=== PATIENT | female | born 1970 | race Caucasian/White ===

== ENCOUNTER 2019-09-15 18:51 | Inpatient (IN) | payer BC ==
[~2019-09-15] VITALS: Ht 167.6 cm; Wt 130.0 kg
[~2019-09-15 18:51] MED LIST: GLUCOPHAGE500 MG OR; TOPROL XL50 MG OR
--- NOTE | 2019-09-15 19:48 | NUR ---
A/O, PWD. RESP EASY REG. ABD SOFT/TENDER BS + PT VOIDED/URINE SENT. IV STARTED. NAD. LABS DRAWN.
[2019-09-15 19:59] LABS: HEMATOCRIT 39.3 % (37.0-47.0); HEMOGLOBIN 12.5 g/dl (12.0-16.0); IMMATURE GRANULOCYTES 0.4 % (0.0-5.0); MEAN CORPUSCULAR HGB 25.8 pG CALC (26.0-32.0); MEAN CORPUSCULAR HGB CONC 31.8 g/L CALC (32.0-36.0); NEUT# 14.58 thou/uL (2.00-7.15); RED BLOOD COUNT 4.85 mill/uL (4.20-5.60)
[2019-09-15 20:03] LABS: URINE BLOOD DIPSTICK SMALL (NEGATIVE); URINE COLOR YELLOW; URINE GLUCOSE - DIPSTICK NEGATIVE (NEGATIVE); URINE KETONE NEGATIVE (NEGATIVE); URINE LEUK ESTERASE NEGATIVE (NEGATIVE); URINE NITRITE - DIPSTICK NEGATIVE (Negative); URINE PROTEIN - DIPSTICK TRACE mg/dL (NEG-TRACE); URINE SPECIFIC GRAVITY >=1.030; URINE UROBILINOGEN - DIPSTICK 0.2 E.U./dL (0.2)
[2019-09-15 20:05] LABS: URINE BILIRUBIN - DIPSTICK NEGATIVE (NEGATIVE)
[2019-09-15 20:10] LABS: URINE SQUAMOUS EPITHELIAL CELL MANY EPI/hpf (0-FEW)
[2019-09-15 20:11] LABS: ALBUMIN 3.5 g/dL (3.2-5.0); ALKALINE PHOSPHATASE 74 u/l (38-126); ANION GAP 12 (6-22 (CALC)); BILIRUBIN, TOTAL 0.7 mg/dL (0.0-1.4); BUN 12 mg/dL (7-17); BUN/CREATININE RATIO 16 (12-20 (CALC)); CARBON DIOXIDE 26 mmol/l (22-30); CHLORIDE 104 mmol/l (95-108); CREATININE 0.7 mg/dL (0.5-1.0); GFR > 60 ML/MIN (>=60 (CALC)); GFR FOR AFR.AMER. > 60 ML/MIN (>=60 (CALC)); LIPASE 31 u/l (23-300); SGOT/AST 28 u/l (14-36); SODIUM 138 mmol/l (137-146); TOTAL PROTEIN 6.2 g/dL (6.3-8.2)
[2019-09-15 20:14] LABS: AMYLASE < 30 u/l (30-110)
--- NOTE | 2019-09-15 20:30 | NUR ---
PT TO RADIOLOGY VIA STRETCHER.
--- NOTE | 2019-09-15 20:50 | NUR ---
RETURNED FROM XRAY
--- NOTE | 2019-09-15 21:55 | NUR ---
TO OR WITH OR NURSE. ATIYA SENT WITH PT. HIPOLITO INFUSING.
[2019-09-16] VITALS (11 sets, daily range): BP systolic 99–142; BP diastolic 42–70
--- NOTE | 2019-09-16 01:24 | NUR ---
PT ARRIVED TO THE FLOOR VIA STRETCHER ACCOMPANIED BY OR STAFF. PT ALERT AND ORIENTED. RESPIRATIONS EVEN AND UNLABORED ON O2 @ 2L VIA NC. VS OBTAINED AND ASSESSMENT COMPLETED. LUNGS SOUND CLEAR. PEDAL PULSE STRONG. #20 RAC PATENT AND APPEARS HEALTHY. PT DENIES ANY NEEDS AT THIS TIME. PT ORIENTED TO ROOM AND CALL VALDEZ SYSTEM. SAFETY PRECAUTIONS IN PLACE. WILL CONTINUE TO MONITOR.
--- NOTE | 2019-09-16 04:57 | NUR ---
PT RESTING IN BED. RESPIRATIONS EVEN AND UNLABORED ON O2 @ 2L VIA NC. NO S/S OF DISTRESS AT THIS TIME. WILL CONTINUE TO MONITOR.
--- NOTE | 2019-09-16 07:30 | NUR ---
SLEEPING ON ROUNDS. AROUSES TO NAMES. VSS. RESP NON-LABORED. LUNGS CLEAR THROUGHOUT. ABD SOFTLY DISTENDED WITH FAINT DISTANT BOWEL SOUNDS. MIDLINE ABD DSG CDI, AND TWO SMALL DSG CDI. PRO DRAINS CLEAR DUC URINE. NO PERIPHERAL EDEMA, PULSES INTACT. IV IN RAC WITH NS AT 150 ML/HR AND PROTONIX GTT AT 10 ML/HR-SITE HEALTHY. SALINE LOCK IN LFA SITE BENIGN, FLUSHED AND PATENT. DISCUSSED PLAN OF CARE. INSTRUCTED ON USING IS. CALL VALDEZ IN REACH.
--- NOTE | 2019-09-16 10:00 | NUR ---
RESTING WITH EYES CLOSED AFTER BEING MEDICATED FOR PAIN EARLIER.
--- NOTE | 2019-09-16 10:25 | NUR ---
DR AZUL IN TO SEE PATIENT.
--- NOTE | 2019-09-16 12:00 | NUR ---
BATHED WITH ASSISTANCE OF BEHAVIORAL TECHNICIAN'S THEN UP TO BEDSIDE CHAIR.
--- NOTE | 2019-09-16 14:00 | NUR ---
BACK TO BED, TOLERATED CHAIR WELL.
[2019-09-16] MEDS ORDERED: ALPRAZOLAM0.25 MG PO (14:21)
[2019-09-16] MEDS ORDERED: LOPRESSOR25 M1 PO (14:23)
[2019-09-16] MEDS ORDERED: CELEXA20 MG PO (14:23)
--- NOTE | 2019-09-16 15:30 | NUR ---
FAMILY MEMBERS IN AND OUT THIS AFTERNOON. PATIENT USING IS-VOLUME 1000 ML. MEDICATED FOR C/O OPERATIVE PAIN.
--- NOTE | 2019-09-16 16:00 | NUR ---
NAPPING. RESP NON-LABORED. IV INFUSIGN WITHOUT INCIDENT.
--- NOTE | 2019-09-16 18:00 | NUR ---
RESTING IN BED. SCD'S ON. IV SITE IN LFA WITH LR AT 150/HR AND SALINE LOCK FLUSHED AND PATENT. DENIES NEEDS AT THIS TIME.
--- NOTE | 2019-09-16 18:58 | NUR ---
REPORT RECEIVED FROM RENÉE HOLT. PT RESTING IN BED. RESPIRATIONS EVEN AND UNLABORED ON RA. NO S/S OF DISTRESS AT THIS TIME. WILL CONTINUE TO MONITOR.
--- NOTE | 2019-09-16 21:55 | NUR ---
PT RESTING IN BED, ALERT AND ORIENTED. RESPIRATIONS EVEN AND UNLABORED ON RA, LUNGS SOUND CLEAR. PEDAL PULSES STRONG. DRESSINGS X3 TO ABD CDI. RPO DRAINING TO GRAVITY. #22 LFA PATENT AND APPEARS HEALTHY. CALL VALDEZ WITHIN REACH. WILL CONTINUE TO MONITOR.
--- NOTE | 2019-09-17 00:46 | NUR ---
PT RESTING IN BED. NO S/S OF DISTRESS AT THIS TIME. SAFETY PRECAUTIONS IN PLACE. WILL CONTINUE TO. MONITOR.
--- NOTE | 2019-09-17 03:47 | NUR ---
PT RESTING IN BED. RESPIRATIONS EVEN AND UNLABORED ON RA. SAFETY PRECAUTIONS IN PLACE. WILL CONTINUE TO MONITOR.
[2019-09-17 04:05] VITALS: BP 133/76
[2019-09-17 08:05] VITALS: BP 140/67
--- NOTE | 2019-09-17 08:05 | NUR ---
RESTING IN BED ON ROUNDS. AWAKE, ALERT AND ORIENTED. VSS, AFEBRILE. RESP NON-LABORD. BREATH SOUNDS CLEAR THROUGHOUT. ENCOURAGED USE OF IS. ABD LARGE, SOFT, WITH DISTANT, HYPOACTIVE BOWEL SOUNDS. ABD DSGS CDI. PRO DRAINS CLEAR DARK DUC URINE. IV IN LFA WITH LR AT 150 ML/HR AND PROTONIX GTT AT 10 ML/HR, SITE HEALTHY. SALINE LOCK IN RH FLUSHED AND PATENT. SCD'S IN USE. ASSISTED PATIENT UP TO CHAIR.
--- NOTE | 2019-09-17 10:20 | NUR ---
RETURNED TO BED. TOLERATED UP IN CHAIR WELL.
--- NOTE | 2019-09-17 10:25 | NUR ---
MEDCIATED FOR PAIN ORDERED.
--- NOTE | 2019-09-17 10:50 | NUR ---
PAIN MED HAD GOOD EFFECT.
[2019-09-17 10:57] VITALS: BP 151/68
--- NOTE | 2019-09-17 12:00 | NUR ---
PATIENT NAPS ON AND OFF.
--- NOTE | 2019-09-17 13:25 | NUR ---
DR AZUL IN TO SEE PATIENT. NEW ORDERS RECEIVED.
--- NOTE | 2019-09-17 14:00 | NUR ---
PRO CATHETER DC'D PER DRS ORDERS. PATIENT UP TO BR, AND THEN AMBULATED IN [place] WITH ASSISTANCE.
[2019-09-17 15:45] VITALS: BP 149/70
--- NOTE | 2019-09-17 15:45 | NUR ---
PATIENT AMBULATING TO , VOIDING WITHOUT DIFFICULTY SINCE PRO REMOVED.
[2019-09-17 19:17] VITALS: BP 151/60
[2019-09-18] VITALS (8 sets, daily range): BP systolic 142–180; BP diastolic 64–81
[2019-09-18 04:31] LABS: IMMATURE GRANULOCYTES 0.4 % (0.0-5.0); MEAN CELL VOLUME 82.5 fL CALC (80.0-100.0); MEAN CORPUSCULAR HGB 25.8 pG CALC (26.0-32.0); MEAN CORPUSCULAR HGB CONC 31.2 g/L CALC (32.0-36.0); NEUT# 9.1 thou/uL (2.00-7.15); RED CELL DISTRI WIDTH 13.2 % (11.5-15.5)
[2019-09-18 04:40] LABS: HEMOGLOBIN 10.3 g/dl (12.0-16.0)
[2019-09-18 04:51] LABS: ANION GAP 12 (6-22 (CALC)); BUN 7 mg/dL (7-17); BUN/CREATININE RATIO 12 (12-20 (CALC)); CARBON DIOXIDE 24 mmol/l (22-30); CHLORIDE 106 mmol/l (95-108); CREATININE 0.6 mg/dL (0.5-1.0); GFR > 60 ML/MIN (>=60 (CALC)); GFR FOR AFR.AMER. > 60 ML/MIN (>=60 (CALC)); POTASSIUM 3.6 mmol/l (3.5-5.1); SODIUM 138 mmol/l (137-146)
--- NOTE | 2019-09-18 08:08 | NUR ---
ASSESSMENT DONE. PT IS A&O X3. PT STATED PAIN IN ABD 12/05 BUT DENIES PAIN MEDICATION AT THIS TIME. ABD DRESSINGS IN PLACE CDI. IVF INFUSING WELL. ICE CHIPS PROVIDE. PT DENIES ANY OTHER NEEDS AT THIS TIME. CALL LIGHT IN REACH.
--- NOTE | 2019-09-18 12:02 | NUR ---
AT BEDSIDE TO ASSESS PT AND DISCUSS POC.
--- NOTE | 2019-09-18 12:44 | NUR ---
DRESSINGS CHANGE TO ABD AND [address] PT DENIES ANY NEEDS AT THIS TIME. CALL LIGHT IN REACH.
--- NOTE | 2019-09-18 15:02 | NUR ---
PT BP 180/81 AND P-61. MEDICATED PT WITH METOPROLOL. PT DENIES NEEDS AT THIS TIME. PT STATED PAIN MEDICATION HELPED. CALL LIGHT IN REACH.
--- NOTE | 2019-09-18 15:22 | NUR ---
FAMILY IN ROOM. DR. HIDALGO AND HELADIO CEJA AT BEDSIDE TO ASSES PT.
--- NOTE | 2019-09-18 19:30 | NUR ---
PATIENT RESTING IN BED AT THIS TIME-AWAKE ALERT AND ORIENTEDX3. PATIENT WITH IV SITE TO LEFT FOREARM WITH LR PATENT ANDINFUSING AT 100CC/HR AND PROTONIX GTT INFUSING AT 10CC/HR. SALINE LOCK TO RAC INTACT AND HEALTHY WITH GOOD BLOOD RETURN. ABD IS SOOFT WITH BS+. ABD DRESSINGS ARE CDI AT THIS TIME. PATIENT STATES THAT SHE IS PASSING GAS NO STOOL YET. ENCOURAGED USE OF IS Q1H W/A-ABLE TO DEMONSTRATE PROPER USE OF DEVICE. SCD'S IN USE. LUNGS ARE CLEAR. TAKING ONLY SMALL AMT OF ICE CHIPS AT THIS TIME. SAFETY PRECAUTIONS REINFORCED, CALL LIGHT IN REACH, WILL CONT TO MONITOR.
--- NOTE | 2019-09-18 22:57 | NUR ---
PATIENT RESTING IN BED-MEDICATED FOR 7/10 POST-OP PAINWITH DILAUDID 1MG IVP AND WITH ZOFRAN 4MG IVP FOR NAUSEA. CALL LIGHT IN REACH. WILL CONT TO MONITOR.
--- NOTE | 2019-09-18 23:30 | NUR ---
IV SITE TO LEFT FOREARM IS RED AND PAINFUL. SITE D/GERRY WITH CATH INTACT. NEW IV SITE STARTED TO LEFT WRIST WITH GOOD BLOOD RETURN. IVF LR PATENT AND INFUSING AT 100CC/HR ALOG WITH PROTONIX GTT AT 10CC/HR. PATIENT WITH SOME RELIEF FROM EARLIER PAIN MEDS. UP TO BSC TO VOID AND THEN BACK TO BED. ZOSYN HUNG AND INFUSING IV SITE TO RIGHT AC SITE. CALL LIGHT IN REACH. WILL CONT TO MONITOR.
[2019-09-19 03:25] VITALS: BP 151/66
--- NOTE | 2019-09-19 04:00 | NUR ---
PATIENT RESTIN IN BED AT THIS TIME-APPEARS SLEEPING WITH EYES CLOSEDAND HOB SLIGHTLY ELEVATED. RESP ARE EVEN AND UNLABORED. PATIENT WITH IVF LR PATENT AND INFUSING AT 100CC/HR WITH PROTONIX GTT AT 10CC/HR VIA LEFT WRIST SITE. SALINE LOCK TO RAC INTACT. REMAINS NPO EXCEPT FOR FEW ICE CHIPS. CALL LIGHT IN REACH. CALL LIGHT IN REACH. WILL CONT TO MONITOR.
[2019-09-19 07:27] VITALS: BP 156/71
--- NOTE | 2019-09-19 07:51 | NUR ---
REPORT RECEIVED FROM RENÉE ATKINS. PT SITTING UPRIGHT IN BED. DENIES PAIN. REPORTING OF CONCERNS ENCOURAGED. NPO W/ ICE CHIPS DIET REVIEWED. GI SERIES TESTING FOR TODAY REVIEWED. PT STATES UNDERSTANDING. PT. ALERT AND ORIENTED. LUNGS SOUDNS CLEAR. HEART SOUNDS REGULAR. BOWEL SOUNDS ACTIVE X 4 QUADS. PT. REPORTS PASSING GAS. URINE CLEAR YELLOW, 400 ML EMPTIED FROM BSC. PROTONIX GTT @ 10 ML/HR AND LR @ 100 ML/HR INFUSING THROUGH # 22 LW W/O DIFFICULTY. FALL PRECAUTIONS REVIEWED. CALL LIGHT REVIEWED AND IN REACH. 1500 ML INCENTIVE VOLUME ACHIEVED ON I.S.
--- NOTE | 2019-09-19 12:15 | NUR ---
#22 LW INFILTRATED. REDNESS/PAINFUL W/ FLUSHING. SITE REMOVED. PT REFUSING NEW SITE. DR. AZUL NOTIFIED. ORDER TO D/C IV MEDS. PROTONIX CHANGED TO PO 40 MG BID.
--- NOTE | 2019-09-19 14:00 | NUR ---
PT AMBULATING IN HALLWAYS. TOLERATE ACTIVITY WELL.
[2019-09-19 15:11] VITALS: BP 148/77
--- NOTE | 2019-09-19 17:30 | NUR ---
PT SITTING UPRIGHT IN BED. DENIES PAIN. VISITORS AT BEDSIDE. REPORTS BM X 2.
[2019-09-19 21:22] VITALS: BP 142/67
[2019-09-20 00:33] VITALS: BP 134/72
[2019-09-20 03:53] VITALS: BP 161/65
[2019-09-20 05:45] LABS: HEMATOCRIT 33.4 % (37.0-47.0); HEMOGLOBIN 10.7 g/dl (12.0-16.0); IMMATURE GRANULOCYTES 0.3 % (0.0-5.0); MEAN CELL VOLUME 80.9 fL CALC (80.0-100.0); MEAN CORPUSCULAR HGB 25.9 pG CALC (26.0-32.0); NEUT# 5.23 thou/uL (2.00-7.15); RED BLOOD COUNT 4.13 mill/uL (4.20-5.60); RED CELL DISTRI WIDTH 13.1 % (11.5-15.5)
[2019-09-20 06:00] LABS: BUN 4 mg/dL (7-17); BUN/CREATININE RATIO 7 (12-20 (CALC)); CHLORIDE 101 mmol/l (95-108); CREATININE 0.6 mg/dL (0.5-1.0); GFR > 60 ML/MIN (>=60 (CALC)); GFR FOR AFR.AMER. > 60 ML/MIN (>=60 (CALC)); POTASSIUM 3.3 mmol/l (3.5-5.1); SODIUM 139 mmol/l (137-146)
[2019-09-20 06:08] LABS: ANION GAP 10 (6-22 (CALC)); CARBON DIOXIDE 31 mmol/l (22-30)
--- NOTE | 2019-09-20 07:45 | NUR ---
AWAKE ON ROUNDS, UP IN CHAIR. RESP NON-LABORED. LUNGS CLEAR THROUGHOUT. ABD SOFTLY DISTENDED, WITH BOWEL SOUNDS PRESENT. ABD DSGS CDI. NVO. SHIFT ASSESSMENT COMPLETED. CALL VALDEZ IN [place]. DENIES NEEDS AT THIS TIME.
--- NOTE | 2019-09-20 07:58 | NUR ---
PATIENT RESTING IN BED AT THIS TIME. AWAKE ALERT AND ORIENTEDX3. PATIENT TOLERATING LIQUIDS WELL. PATIENT IS UP AMBULATING IN THE HALLS-TOLERATING WELL. ABD DRESSINGS ARE CDI AND PATIENT CONT TO USE ABD BINDER. HAVING LOOSE STOOLS. MEDICATED FOR PAIN WITH TYLENOL WITH CODEINE ORDER. CALL LIGHT IN REACH. WILL CONT TO MONITOR.
[2019-09-20 11:37] VITALS: BP 138/74
--- NOTE | 2019-09-20 11:50 | NUR ---
UP AND ABOUT IN ROOM. NO COMPLAINTS VOICED.
[2019-09-20] MEDS ORDERED: PANTOPRAZOLE SO40 M1 PO (12:35)
[2019-09-20] MEDS ORDERED: PERCOCET 5/321 COMBO PO (12:36)
--- NOTE | 2019-09-20 16:00 | NUR ---
FAMILY IN TO VISIT EARLIER.
--- NOTE | 2019-09-20 17:58 | NUR ---
Discharge instructions given. Patient verbalizes understanding of same. Discharged in stable condition via Wheelchair to Home with family. All belongings sent with pt.
== END 2019-09-20 17:58 | disposition home or self-care (01) | DRG 326 ==
LOC: ED 18:51 → ED-I 21:06 → ED 21:06 → ED-I 21:51 → ED 21:51 → MS2 21:52 → ED 21:55 → ED-I 21:55 → MS2 22:10 → ED 22:10 → MS2 09-16 00:15 → ED 09-16 01:19 → MS2 09-16 01:20
PROVIDERS: Family Medicine; ADMIT Surgery; ATTEND Surgery
PROC: 0WJG4ZZ Inspection of Peritoneal Cavity, Percutaneous Endoscopic Approach (ICD-10-PCS; principal; 2019-09-15)
PROC: 0DU607Z Supplement Stomach with Autologous Tissue Substitute, Open Approach (ICD-10-PCS; 2019-09-15)
DX: K95.89 Other complications of other bariatric procedure (principal); K28.5 Chronic or unspecified gastrojejunal ulcer with perforation; I10 Essential (primary) hypertension; Y84.8 Other medical procedures as the cause of abnormal reaction of the patient, or of later complication, without mention of misadventure at the time of the procedure; Z98.84 Bariatric surgery status
CPT/HCPCS: J0131; J2710; Q9967; S0164

== ENCOUNTER 2020-01-09 | Day surgery (SDC) | payer BC ==
[~2020-01-09] MED LIST changes: +ALPRAZOLAM0.25 MG PO; +CELEXA20 MG PO; +LOPRESSOR25 M1 PO; +PANTOPRAZOLE SO40 M1 PO; +PERCOCET 5/321 COMBO PO
--- NOTE | 2020-01-24 11:03 | NUR ---
PER DR AZUL EGD FOUND WELL HEALED GJ JUNCTION. ADVISED PATIENT OF THE SAME. ADVISED I CALLED IN PANTOPRAZOLE 40MG 1 TAB PO DAILY, 90 PILLS WITH [address] [facility]. SHE UNDERSTOOD.
== END 2020-01-09 09:04 | disposition home or self-care (01) | DRG 951 ==
PROC: 0DJ08ZZ Inspection of Upper Intestinal Tract, Via Natural or Artificial Opening Endoscopic (ICD-10-PCS; principal; 2020-01-09)
DX: Z09 Encounter for follow-up examination after completed treatment for conditions other than malignant neoplasm (principal); K44.9 Diaphragmatic hernia without obstruction or gangrene; I10 Essential (primary) hypertension; E66.9 Obesity, unspecified; Z87.11 Personal history of peptic ulcer disease; Z79.899 Other long term (current) drug therapy

== ENCOUNTER 2024-11-18 05:31 | Emergency (ER) | payer OTHER, BC ==
[~2024-11-18] VITALS: Ht 172.7 cm; Wt 80.0 kg
[2024-11-18 06:00] VITALS: BP 164/77
[2024-11-18] MEDS ORDERED: IBUPROFEN 200 MG/TAB PO ONE (07:15)
[2024-11-18] MEDS ORDERED: ACETAMINOPHEN 500 MG TAB PO ONE (07:15)
[2024-11-18] MEDS ORDERED: TRAMADOL HYDROC50 M1 PO (07:47)
[2024-11-18 07:56] VITALS: BP 164/77
== END 2024-11-18 07:58 | disposition home or self-care (01) | DRG 90 ==
LOC: ED 05:31
DX: S06.0X0A Concussion without loss of consciousness, initial encounter (principal); M54.2 Cervicalgia; M54.50 Low back pain, unspecified; V43.52XA Car driver injured in collision with other type car in traffic accident, initial encounter